=== PATIENT | female | born 1955 | race Caucasian/White ===

== ENCOUNTER 2022-08-09 07:48 | Inpatient (IN) | payer OTHER, MEDICARE ==
[2022-08-02 11:35] VITALS: BMI 29.9
[2022-08-09] MEDS ORDERED: TRANEXAMIC ACID 1000 MG/10 ML VIAL IVPUSH ONE (10:00)
[2022-08-09] MEDS ORDERED: MIDAZOLAM HCL 2 MG/2 ML SINGLE DOSE VIAL ONE ×2 (10:10→10:56)
[2022-08-09] MEDS ORDERED: BUPIVACAINE LIPOSOME/PF (EXPAREL) 266 MG/20 ML VIAL ONE (10:10)
[2022-08-09] MEDS ORDERED: SODIUM CHLORIDE 0.9% P/F 10 ML VIAL IJ ONE (10:11)
[2022-08-09] MEDS ORDERED: BUPIVACAINE HCL 50 ML ONE (10:11)
[2022-08-09] MEDS ORDERED: PROPOFOL 40 ML ONE (10:56)
[2022-08-09] MEDS ORDERED: ONDANSETRON 4 MG/2 ML VIAL ONE (10:57)
[2022-08-09] MEDS ORDERED: DEXAMETHASONE SOD PHOSPHATE 4 MG/1 ML VIAL ONE (10:57)
[2022-08-09] MEDS ORDERED: KETOROLAC TROMETHAMINE 30 MG/1 ML VIAL ONE (10:57)
[2022-08-09] MEDS ORDERED: ceFAZolin SODIUM 1 GM VIAL ONE (10:57)
[2022-08-09] MEDS ORDERED: TRANEXAMIC ACID 1000 MG/10 ML VIAL ONE (10:57)
[2022-08-09] MEDS ORDERED: PROPOFOL 20 ML ONE (12:20)
[2022-08-09] MEDS ORDERED: oxyCODONE HCL 5 MG TABLET PO PRN (12:56)
[2022-08-09] MEDS ORDERED: MAGNESIUM HYDROX 2400MG/30ML ORAL SUSPENSION 30 ML CUP PO PRN (12:56)
[2022-08-09] MEDS ORDERED: ONDANSETRON 4 MG/2 ML VIAL IVPUSH PRN ×2 (12:56→13:08)
[2022-08-09] MEDS ORDERED: MAG HYDROX/AL HYDROX/SIMETH 30 ML UNIT-DOSE CUP PO PRN (12:56)
[2022-08-09] MEDS ORDERED: LACTATED RINGERS SOLUTION 1,000 ML IV SCH (13:00)
[2022-08-09] MEDS ORDERED: ACETAMINOPHEN 1000 MG/100 ML BAG IVPB SCH (13:00)
[2022-08-09] MEDS ORDERED: ACETAMINOPHEN 500 MG TABLET (FP) ONE (13:30)
[2022-08-09] MEDS: ACETAMINOPHEN 500 MG TABLET (FP) PO SCH ×2 (13:33→21:58)
[2022-08-09] MEDS: oxyCODONE HCL 5 MG TABLET PO PRN ×2 (16:05→21:59)
[2022-08-09] MEDS: CEFAZOLIN SODIUM 2 GM in DEXTROSE 5%-WATER 100 ML IVPB SCH (17:49)
[2022-08-09] MEDS: ASPIRIN 81 MG CHEWABLE TABLETS PO SCH (21:59)
[2022-08-09] MEDS: ASCORBIC ACID 500 MG TABLET (FP) PO SCH (21:59)
[2022-08-09] MEDS: FAMOTIDINE 20 MG TABLET PO SCH ×2 (21:59→22:07)
[2022-08-09] MEDS: SENNOSIDES/DOCUSATE COMBO (SENNA PLUS) TABLET (UD) PO SCH (22:00)
[2022-08-10] MEDS: ACETAMINOPHEN 500 MG TABLET (FP) PO SCH ×3 (01:35→15:10)
[2022-08-10] MEDS: CEFAZOLIN SODIUM 2 GM in DEXTROSE 5%-WATER 100 ML IVPB SCH (01:36)
[2022-08-10] MEDS: oxyCODONE HCL 5 MG TABLET PO PRN (04:06)
[2022-08-10] MEDS ORDERED: MULTIVITAMINS (DAILY MVI) TABLET (FP) PO SCH (10:00)
[2022-08-10] MEDS ORDERED: CELECOXIB 200 MG CAPSULE PO SCH (10:00)
[2022-08-10] MEDS ORDERED: DEXAMETHASONE 4 MG TABLET (FP) PO ONE (10:00)
[2022-08-10] MEDS: FAMOTIDINE 20 MG TABLET PO SCH (10:21)
[2022-08-10] MEDS: SENNOSIDES/DOCUSATE COMBO (SENNA PLUS) TABLET (UD) PO SCH (10:21)
[2022-08-10] MEDS: ASPIRIN 81 MG CHEWABLE TABLETS PO SCH (10:21)
[2022-08-10] MEDS: ASCORBIC ACID 500 MG TABLET (FP) PO SCH (10:21)
[2022-08-10 11:49] VITALS: RESP 16
[2022-08-10 15:26] VITALS: BP 129/44; PULSE 79; TEMP 98.1
== END 2022-08-10 15:33 | disposition home or self-care (01) | DRG 470 ==
LOC: FM/S 07:48
PROVIDERS: ADMIT Orthopaedic Surgery; ATTEND Orthopaedic Surgery
PROC: 0SRC0J9 Replacement of Right Knee Joint with Synthetic Substitute, Cemented, Open Approach (ICD-10-PCS; principal; 2022-08-09 11:16)
DX: M17.11 Unilateral primary osteoarthritis, right knee (principal)
CPT/HCPCS: 73560-TC-RT-FY; 94760; 97010-GP; 97116-GP; 97162-GP; C1776; C1889

== ENCOUNTER 2022-11-29 06:09 | Day surgery (SDC) | payer OTHER, MEDICARE ==
[2022-11-22 14:16] VITALS: BMI 31.4
[~2022-11-29 06:09] MED LIST: TRANEXAMIC ACID 1000 MG/10 ML VIAL IVPUSH ONE
[2022-11-29] MEDS ORDERED: DEXAMETHASONE SOD PHOSPHATE 4 MG/1 ML VIAL ONE ×2 (07:02→08:59)
[2022-11-29] MEDS ORDERED: ONDANSETRON 4 MG/2 ML VIAL ONE ×2 (07:02→08:59)
[2022-11-29] MEDS ORDERED: PROPOFOL 40 ML ONE ×2 (07:02→08:37)
[2022-11-29] MEDS ORDERED: SUCCINYLCHOLINE CHLORIDE 200 MG/10 ML SYRINGE ONE (07:03)
[2022-11-29] MEDS ORDERED: ceFAZolin SODIUM 1 GM VIAL ONE (07:03)
[2022-11-29] MEDS ORDERED: MIDAZOLAM HCL 2 MG/2 ML SINGLE DOSE VIAL ONE ×2 (07:03→08:14)
[2022-11-29] MEDS ORDERED: TRANEXAMIC ACID 1000 MG/10 ML VIAL ONE (07:03)
[2022-11-29] MEDS ORDERED: BUPIVACAINE HCL/PF 0.5% (5 MG/ML) 30 ML VIAL IJ ONE (07:27)
[2022-11-29] MEDS ORDERED: BUPIVACAINE LIPOSOME/PF (EXPAREL) 266 MG/20 ML VIAL ONE (07:28)
[2022-11-29] MEDS ORDERED: MAG HYDROX/AL HYDROX/SIMETH 30 ML UNIT-DOSE CUP PO PRN (09:57)
[2022-11-29] MEDS ORDERED: MAGNESIUM HYDROX 2400MG/30ML ORAL SUSPENSION 30 ML CUP PO PRN (09:57)
[2022-11-29] MEDS ORDERED: GABAPENTIN 300 MG CAPSULE PO SCH (10:00)
[2022-11-29] MEDS ORDERED: LACTATED RINGERS SOLUTION 1,000 ML IV SCH (10:00)
[2022-11-29] MEDS ORDERED: ACETAMINOPHEN 1000 MG/100 ML BAG IVPB ONE (10:05)
[2022-11-29] MEDS: CELECOXIB 200 MG CAPSULE PO SCH ×2 (12:22→21:29)
[2022-11-29] MEDS: SENNOSIDES/DOCUSATE COMBO (SENNA PLUS) TABLET (UD) PO SCH ×2 (12:22→21:29)
[2022-11-29] MEDS: PANTOPRAZOLE 40 MG TABLET PO SCH (12:23)
[2022-11-29] MEDS: oxyCODONE HCL 5 MG TABLET PO PRN ×2 (14:24→20:55)
[2022-11-29] MEDS: ONDANSETRON 4 MG/2 ML VIAL IVPUSH PRN ×2 (15:40→21:00)
[2022-11-29] MEDS: CEFAZOLIN SODIUM 2 GM in DEXTROSE 5%-WATER 100 ML IVPB SCH (15:40)
[2022-11-29] MEDS: ACETAMINOPHEN 500 MG TABLET (FP) PO SCH (18:32)
[2022-11-29 19:43] VITALS: RESP 18
[2022-11-29] MEDS: ASPIRIN 81 MG CHEWABLE TABLETS PO SCH (21:29)
[2022-11-30] MEDS: CEFAZOLIN SODIUM 2 GM in DEXTROSE 5%-WATER 100 ML IVPB SCH (00:30)
[2022-11-30] MEDS: ACETAMINOPHEN 500 MG TABLET (FP) PO SCH ×2 (03:07→09:18)
[2022-11-30] MEDS: oxyCODONE HCL 5 MG TABLET PO PRN ×2 (06:03→12:21)
[2022-11-30] MEDS: ONDANSETRON 4 MG/2 ML VIAL IVPUSH PRN ×2 (06:10→12:22)
[2022-11-30 07:54] LABS: CREATININE 0.7 mg/dl (0.55-1.3)
[2022-11-30 07:56] LABS: HEMOGLOBIN 12.9 G/dL (10.7-15.3); MCH 34.3 pg (25.7-33.7); MCHC 34.9 g/dl (32.0-36.0); MEAN CELL VOLUME 98.3 fl (80-96); MEAN PLT VOLUME 8.8 fl (7.5-11.1); PLATELET COUNT 250.6 10^3/uL (134-434); RBC 3.76 10^6/uL (3.60-5.2); RDW 12.9 % (11.6-15.6); WHITE BLOOD COUNT 9.3 10^3/uL (4.0-10.8)
[2022-11-30] MEDS: ASPIRIN 81 MG CHEWABLE TABLETS PO SCH (09:18)
[2022-11-30] MEDS: PANTOPRAZOLE 40 MG TABLET PO SCH (09:18)
[2022-11-30] MEDS: SENNOSIDES/DOCUSATE COMBO (SENNA PLUS) TABLET (UD) PO SCH (09:19)
[2022-11-30] MEDS: CELECOXIB 200 MG CAPSULE PO SCH (09:19)
[2022-11-30] MEDS ORDERED: DEXAMETHASONE SOD PHOSPHATE 4 MG/1 ML VIAL IVPUSH ONE (10:04)
[2022-11-30 13:57] VITALS: BP 143/58; PULSE 70; TEMP 97.9
== END 2022-11-30 14:55 | disposition home or self-care (01) ==
LOC: FASUSAT 06:09 → UNDOADMIN 06:09 → FM/S 06:09 → EDSTATUS 10:30 → FM/S 11:18 → FASUSAT 16:14 → FM/S 16:15 → FASUSAT 11-30 14:55
PROVIDERS: ATTEND Orthopaedic Surgery
PROC: 0SRD0JA Replacement of Left Knee Joint with Synthetic Substitute, Uncemented, Open Approach (ICD-10-PCS; principal; 2022-11-29 08:07)
DX: M17.12 Unilateral primary osteoarthritis, left knee (principal)
CPT/HCPCS: 36415; 73560-TC-LT-FY; 80048; 85027; 94760; 97010-GP; 97116-GP; 97162-GP; C1776; C1889